=== PATIENT | male | born 1940 | race Caucasian/White ===

== ENCOUNTER → 2016-09-08 | Outpatient (CLI) | payer MEDICARE, OTHER ==
[~2016-09-08] MED LIST: LEVOTHYROXINE PO; PROTONIX 40MG T40 MG PO; RAPAFLO8 MG PO; XYZAL5 MG PO
== END ==
LOC: CARDREHAB 09:44
DX: R07.89 Other chest pain (principal); R06.00 Dyspnea, unspecified
CPT/HCPCS: A9500

== ENCOUNTER → 2018-05-30 | Outpatient (CLI) | payer MEDICARE ==
[~2018-05-30] VITALS: Ht 175.3 cm; Wt 68.6 kg
[~2018-05-30] MED LIST changes: +PROAIR HFA0.09 MG/AC IH
[2018-05-30 11:13] LABS: BASO # 0.1 (0.02-0.10); EOS # 0.4 (0.04-0.40); EOS % 4.4 % (0.0-4.0); HEMATOCRIT 49.9 % (42.0-52.0); HEMOGLOBIN 16.5 g/dL (13.5-18.0); LYMPH# 1.8 (1.50-4.00); MEAN CELL VOLUME 98 fl (78-100); MEAN CORPUSCULAR HEMOGLOBIN 32 pg (27-31); MEAN CORPUSCULAR HGB CONC 33 g/dL (33-37); MEAN PLATELET VOLUME 10.9 fl (7.4-10.4); NEU # 5.4 (1.40-6.50); PLATELET COUNT 234 K/mm3 (130-400); RED BLOOD COUNT 5.11 M/mm3 (4.20-5.60); RED CELL DISTRIBUTION WIDTH 13.8 % (11.5-14.5); WHITE BLOOD COUNT 8.7 K/mm3 (4.8-10.8)
[2018-05-30 11:16] LABS: ALBUMIN 4.1 g/dL (3.5-5.0); CALCIUM 9.5 mg/dL (8.4-10.2); POTASSIUM 4.5 mmol/L (3.6-5.0); TOTAL BILIRUBIN 0.9 mg/dL (0.2-1.3); TOTAL PROTEIN 7.5 g/dL (6.3-8.2)
[2018-05-30 12:18] LABS: ERYTHROCYTE SEDIMENTATION RATE 2 mm/hr (0-20)
[2018-05-30 12:26] VITALS: BP 132/64
[2018-05-30 12:42] LABS: URINE APPEARANCE CLEAR; URINE BILIRUBIN NEGATIVE (NEGATIVE); URINE BLOOD NEGATIVE (NEGATIVE); URINE COLOR YELLOW; URINE GLUCOSE NEGATIVE (NEGATIVE); URINE KETONE NEGATIVE (NEGATIVE); URINE LEUKOCYTE ESTERASE NEGATIVE (NEGATIVE); URINE NITRATE NEGATIVE (NEGATIVE); URINE PROTEIN(semi-quant) TRACE mg/dL (NEGATIVE); URINE UROBILINOGEN NORMAL (NORMAL)
[2018-05-31 02:35] LABS: TESTOSTERONE 579 ng/dL (221-716)
== END ==
LOC: RAD 10:45
PROVIDERS: Internal Medicine
DX: I65.23 Occlusion and stenosis of bilateral carotid arteries (principal); R06.02 Shortness of breath; Z12.11 Encounter for screening for malignant neoplasm of colon; E74.39 Other disorders of intestinal carbohydrate absorption; E78.5 Hyperlipidemia, unspecified; N52.9 Male erectile dysfunction, unspecified; D64.9 Anemia, unspecified; R20.2 Paresthesia of skin; E03.9 Hypothyroidism, unspecified

== ENCOUNTER → 2018-07-30 | Outpatient (CLI) | payer MEDICARE ==
[2018-05-30 12:26] VITALS: BP 132/64
[2018-07-30 10:22] LABS: BASO # 0.1 (0.02-0.10); HEMATOCRIT 45.4 % (42.0-52.0); HEMOGLOBIN 14.5 g/dL (13.5-18.0); LYMPH# 1.8 (1.50-4.00); MEAN CELL VOLUME 94 fl (78-100); MEAN CORPUSCULAR HEMOGLOBIN 30 pg (27-31); MEAN CORPUSCULAR HGB CONC 32 g/dL (33-37); MEAN PLATELET VOLUME 10.1 fl (7.4-10.4); MONO # 1.3 (0.20-0.80); NEU # 8.9 (1.40-6.50); PLATELET COUNT 460 K/mm3 (130-400); RED BLOOD COUNT 4.82 M/mm3 (4.20-5.60); RED CELL DISTRIBUTION WIDTH 12.7 % (11.5-14.5); WHITE BLOOD COUNT 12.8 K/mm3 (4.8-10.8)
[2018-07-30 10:30] LABS: ALBUMIN 4.2 g/dL (3.5-5.0); CALCIUM 10.1 mg/dL (8.4-10.2); TOTAL BILIRUBIN 0.7 mg/dL (0.2-1.3)
[2018-07-30 10:37] LABS: EOS # 0.7 (0.04-0.40); EOS % 5.4 % (0.0-4.0)
[2018-07-30 11:08] LABS: URINE APPEARANCE CLEAR; URINE COLOR YELLOW; URINE PROTEIN(semi-quant) TRACE mg/dL (NEGATIVE)
[2018-07-30 11:09] LABS: URINE BILIRUBIN NEGATIVE (NEGATIVE); URINE BLOOD NEGATIVE (NEGATIVE); URINE GLUCOSE NEGATIVE (NEGATIVE); URINE KETONE NEGATIVE (NEGATIVE); URINE LEUKOCYTE ESTERASE NEGATIVE (NEGATIVE); URINE MUCUS PRESENT (NOT PRESENT); URINE NITRATE NEGATIVE (NEGATIVE); URINE UROBILINOGEN NORMAL (NORMAL)
[2018-07-30 11:52] LABS: ERYTHROCYTE SEDIMENTATION RATE 67 mm/hr (0-20)
[2018-08-01 00:25] LABS: T3 TOTAL 75 ng/dL (87-178)
== END ==
LOC: LAB 09:58
PROVIDERS: Internal Medicine
DX: J84.10 Pulmonary fibrosis, unspecified (principal); E04.1 Nontoxic single thyroid nodule; R59.0 Localized enlarged lymph nodes; R06.02 Shortness of breath; E74.39 Other disorders of intestinal carbohydrate absorption; E78.5 Hyperlipidemia, unspecified; R97.20 Elevated prostate specific antigen [PSA]; R63.4 Abnormal weight loss; R10.84 Generalized abdominal pain
CPT/HCPCS: Q9967

== ENCOUNTER → 2018-08-02 | Outpatient (CLI) | payer MEDICARE ==
[2018-05-30 12:26] VITALS: BP 132/64
[~2018-08-02] MED LIST changes: +LEVOTHYROXINE0.05 MG PO; +PROTONIX TR40 M1 PO
== END ==
LOC: CARDREHAB 09:31
DX: R06.02 Shortness of breath (principal)
CPT/HCPCS: A9500

== ENCOUNTER 2018-08-08 10:49 | Emergency (ER) | payer MEDICARE ==
[~2018-08-08] VITALS: Wt 61.0 kg
[~2018-08-08 10:49] MED LIST changes: -LEVOTHYROXINE0.05 MG PO; -PROTONIX TR40 M1 PO
[2018-08-08] MEDS ORDERED: PROTONIX TR40 M1 PO (11:27)
[2018-08-08] MEDS ORDERED: LEVOTHYROXINE0.05 MG PO (11:27)
[2018-08-08 11:51] LABS: ALBUMIN 3.6 g/dL (3.5-5.0); CALCIUM 9.6 mg/dL (8.4-10.2); POTASSIUM 4.2 mmol/L (3.6-5.0); TOTAL BILIRUBIN 0.6 mg/dL (0.2-1.3)
[2018-08-08 11:53] LABS: HEMATOCRIT 39.6 % (42.0-52.0); HEMOGLOBIN 12.6 g/dL (13.5-18.0); MEAN CELL VOLUME 93 fl (78-100); MEAN CORPUSCULAR HEMOGLOBIN 30 pg (27-31); MEAN CORPUSCULAR HGB CONC 32 g/dL (33-37); MEAN PLATELET VOLUME 10.3 fl (7.4-10.4); PLATELET COUNT 451 K/mm3 (130-400); RED BLOOD COUNT 4.25 M/mm3 (4.20-5.60); RED CELL DISTRIBUTION WIDTH 13.3 % (11.5-14.5); WHITE BLOOD COUNT 14.3 K/mm3 (4.8-10.8)
[2018-08-08 12:11] LABS: LYMPHOCYTE 10 % (20-51); MONOCYTE 5 % (3-10); NEUTROPHILS 79 % (42-75)
[2018-08-08 12:27] LABS: URINE APPEARANCE CLEAR; URINE BILIRUBIN NEGATIVE (NEGATIVE); URINE BLOOD NEGATIVE (NEGATIVE); URINE COLOR YELLOW; URINE GLUCOSE NEGATIVE (NEGATIVE); URINE KETONE NEGATIVE (NEGATIVE); URINE LEUKOCYTE ESTERASE NEGATIVE (NEGATIVE); URINE NITRATE NEGATIVE (NEGATIVE); URINE PROTEIN(semi-quant) 1+ mg/dL (NEGATIVE); URINE UROBILINOGEN NORMAL (NORMAL)
[2018-08-08 12:28] LABS: URINE MUCUS PRESENT (NOT PRESENT)
[2018-08-08 13:13] LABS: ERYTHROCYTE SEDIMENTATION RATE 98 mm/hr (0-20)
[2018-08-08 17:20] VITALS: BP 144/85
== END 2018-08-08 16:20 | disposition short-term general hospital (02) ==
LOC: ED 10:49
PROVIDERS: Nurse Practitioner Family
DX: J18.1 Lobar pneumonia, unspecified organism (principal); R63.4 Abnormal weight loss; E78.5 Hyperlipidemia, unspecified; E03.9 Hypothyroidism, unspecified; K21.9 Gastro-esophageal reflux disease without esophagitis; Z79.899 Other long term (current) drug therapy; Z88.8 Allergy status to other drugs, medicaments and biological substances
CPT/HCPCS: J7030

== ENCOUNTER → 2019-06-02 | Outpatient (CLI) | payer MEDICARE ==
[~2019-06-02] MED LIST changes: +LEVOTHYROXINE0.05 MG PO; +PROTONIX TR40 M1 PO
[2019-06-02 17:39] LABS: BASO # 0.1 (0.02-0.10); EOS # 0.4 (0.04-0.40); HEMATOCRIT 49.6 % (42.0-52.0); HEMOGLOBIN 16.5 g/dL (13.5-18.0); LYMPH# 2.5 (1.50-4.00); MEAN CELL VOLUME 95 fl (78-100); MEAN CORPUSCULAR HEMOGLOBIN 32 pg (27-31); MEAN CORPUSCULAR HGB CONC 33 g/dL (33-37); MEAN PLATELET VOLUME 11.3 fl (7.4-10.4); MONO # 0.8 (0.20-0.80); NEU # 3.7 (1.40-6.50); PLATELET COUNT 178 K/mm3 (130-400); RED BLOOD COUNT 5.23 M/mm3 (4.20-5.60); RED CELL DISTRIBUTION WIDTH 13.3 % (11.5-14.5); WHITE BLOOD COUNT 7.5 K/mm3 (4.8-10.8)
[2019-06-02 17:47] LABS: ALBUMIN 4.5 g/dL (3.4-4.8); POTASSIUM 4.4 mmol/L (3.5-5.1)
[2019-06-02 17:49] LABS: EOS % 5.3 % (0.0-4.0)
[2019-06-02 17:50] LABS: TOTAL PROTEIN 7.5 g/dL (6.2-8.1)
[2019-06-02 17:52] LABS: TOTAL BILIRUBIN 0.7 mg/dL (0.2-1.2)
[2019-06-02 18:43] LABS: ERYTHROCYTE SEDIMENTATION RATE 2 mm/hr (0-20)
== END ==
LOC: LAB 16:54
PROVIDERS: Internal Medicine
DX: E03.9 Hypothyroidism, unspecified (principal); R06.00 Dyspnea, unspecified; R06.02 Shortness of breath; R42 Dizziness and giddiness; R05 Cough

== ENCOUNTER → 2020-11-01 | Outpatient (CLI) | payer MEDICARE, OTHER ==
[2020-11-01 17:55] LABS: BASO # 0.1 (0.02-0.10); EOS # 0.4 (0.04-0.40); EOS % 4.3 % (0.0-4.0); HEMATOCRIT 51.6 % (42.0-52.0); HEMOGLOBIN 16.9 g/dL (13.5-18.0); LYMPH# 2.3 (1.50-4.00); MEAN CELL VOLUME 98 fl (78-100); MEAN CORPUSCULAR HEMOGLOBIN 32 pg (27-31); MEAN CORPUSCULAR HGB CONC 33 g/dL (33-37); MONO # 0.9 (0.20-0.80); NEU # 4.6 (1.40-6.50); PLATELET COUNT 190 K/mm3 (130-400); RED BLOOD COUNT 5.28 M/mm3 (4.20-5.60); WHITE BLOOD COUNT 8.2 K/mm3 (4.8-10.8)
[2020-11-01 18:01] LABS: ALBUMIN 4.6 g/dL (3.4-4.8); POTASSIUM 4.7 mmol/L (3.5-5.1)
[2020-11-01 18:02] LABS: CALCIUM 9.9 mg/dL (8.3-10.5)
[2020-11-01 18:03] LABS: TOTAL PROTEIN 7.5 g/dL (6.2-8.1)
[2020-11-01 18:05] LABS: TOTAL BILIRUBIN 0.7 mg/dL (0.2-1.2)
[2020-11-01 18:10] LABS: MAGNESIUM 2.34 mg/dL (1.60-2.60)
[2020-11-01 19:18] LABS: ERYTHROCYTE SEDIMENTATION RATE 1 mm/hr (0-20)
== END ==
LOC: LAB 17:34
PROVIDERS: Internal Medicine
DX: I65.29 Occlusion and stenosis of unspecified carotid artery (principal); E78.2 Mixed hyperlipidemia; E04.1 Nontoxic single thyroid nodule; K90.9 Intestinal malabsorption, unspecified

== ENCOUNTER → 2020-11-08 | Outpatient (CLI) | payer MEDICARE, OTHER | LOC: RAD 15:04 | DX: I65.23 Occlusion and stenosis of bilateral carotid arteries (principal); E04.1 Nontoxic single thyroid nodule ==

== ENCOUNTER → 2020-12-21 | Outpatient (CLI) | payer MEDICARE, OTHER | LOC: CARDREHAB 10:27 | DX: G47.19 Other hypersomnia (principal) | CPT/HCPCS: G0399 ==

== ENCOUNTER → 2021-02-11 | Outpatient (CLI) | payer MEDICARE, OTHER | LOC: CARDREHAB 08:54 → CARDLAB 12:41 | DX: R06.00 Dyspnea, unspecified (principal) | CPT/HCPCS: A9500 ==

== ENCOUNTER → 2023-12-21 | Outpatient (CLI) | payer MEDICARE, OTHER ==
[2023-12-21 16:21] LABS: BASO # 0.02 K/mm3 (0.02-0.10); EOS # 0.28 K/mm3 (0.04-0.40); EOS % 3.5 % (0.0-4.0); HEMATOCRIT 51.3 % (42.0-52.0); HEMOGLOBIN 17.2 g/dL (13.5-18.0); LYMPH# 2.13 K/mm3 (1.50-4.00); MEAN CELL VOLUME 95 fl (78-100); MEAN CORPUSCULAR HEMOGLOBIN 32 pg (27-31); MEAN CORPUSCULAR HGB CONC 34 g/dL (33-37); MEAN PLATELET VOLUME 10.4 fl (7.4-10.4); MONO # 0.78 K/mm3 (0.20-0.80); NEU # 4.66 K/mm3 (1.40-6.50); PLATELET COUNT 186 K/mm3 (130-400); RED CELL DISTRIBUTION WIDTH 12.6 % (11.5-14.5); WHITE BLOOD COUNT 7.9 K/mm3 (4.8-10.8)
[2023-12-21 16:27] LABS: ALBUMIN 4.8 g/dL (3.4-4.8)
[2023-12-21 16:28] LABS: CALCIUM 10.5 mg/dL (8.3-10.5)
[2023-12-21 16:29] LABS: TOTAL PROTEIN 7.6 g/dL (6.2-8.1)
[2023-12-21 16:31] LABS: TOTAL BILIRUBIN 0.8 mg/dL (0.2-1.2)
[2023-12-21 16:36] LABS: MAGNESIUM 2.01 mg/dL (1.60-2.60)
[2023-12-21 16:44] LABS: PROTHROMBIN TIME 11.3 SECONDS (9.0-12.0)
== END ==
LOC: LAB 15:49
PROVIDERS: Internal Medicine
DX: Z01.818 Encounter for other preprocedural examination (principal)

== ENCOUNTER → 2024-07-08 | Outpatient (CLI) | payer MEDICARE, OTHER ==
[2024-07-11 05:40] LABS: KAPPA LAMBDA RATIO 1.44 (())
[2024-07-14 05:37] LABS: A/G RATIO (PEP) 1.7 (0.7-1.7); BETA GLOBULINS (PEP) 0.9 g/dL (0.7-1.3)
== END ==
LOC: LAB 12:34
PROVIDERS: Internal Medicine
DX: R63.4 Abnormal weight loss (principal)